=== PATIENT | female | born 1955 | race Two or more races ===

== ENCOUNTER → 2024-02-26 | Outpatient (CLI) | payer MEDICARE, MEDICAID, SELFPAY ==
--- NOTE | 2024-02-26 14:30 | XR_ITS ---
Examination: Bone densitometry Date and time of exam:February 26, 2024 1432 hours INDICATIONS: Menopause age 48, family history, mother hip fracture, personal history diabetes, personal history osteopenia Technique: Lumbar spine and hip total bone mineralization values of an calculated. Peak reference and age match control results have been displayed. Findings: Lumbar spine total bone mineralization is0.971 gm/cm2. This is 0.7 standard deviations below peak reference. This is 1.4 standard deviations above age-matched controls. Hip total bone mineralization is 0.843 gm/cm2 This is 0.9 standard deviations below peak reference. This is 0.6 standard deviations above age-matched controls Impression: There is normal mineralization based on lumbar spine measurements. There is osteopenia based on hip measurements Lumbar mineralization is increased 6.3% compared with November 04, 2020 Hip mineralization is increased 2.1% compared with November 04, 2020
== END | disposition home or self-care (01) ==
LOC: CDIM 14:05
PROVIDERS: Referring Provider Nurse Practitioner Family; Visit Provider Nurse Practitioner Family
DX: Z13.820 Encounter for screening for osteoporosis (principal); M85.80 Other specified disorders of bone density and structure, unspecified site
CPT/HCPCS: 77080